=== PATIENT | male | born 1955 | race Caucasian/White ===

== ENCOUNTER 2023-03-17 05:56 | Day surgery (SDC) | payer MEDICARE, BC, SELFPAY ==
[2023-03-17] MEDS: LACTATED RINGERS 1000 ML 1,000 ML 100 ML IV ×2 (06:10→07:35)
[2023-03-17 06:18] VITALS: BP 136/90; PULSE 70; RESP 16; TEMP 36.9; O2SAT 97; BMI 29.7
[2023-03-17] MEDS: SODIUM CHLORIDE 0.9 % (FLUSH) 10 ML SYRINGE IVF (06:29)
--- NOTE | 2023-03-17 07:00 | CRLHL7_ITS ---
For Patients: As a result of the Century Cures Act, medical imaging exams and procedure reports are released immediately into your electronic medical record. You may view this report before your referring provider. If you have questions, please contact your health care provider. INDICATION: Hammertoe correction. TECHNIQUE: Fluoroscopically guided intraoperative evaluation of the left 2nd toe. Two spot images were obtained. FINDINGS: 23.6 seconds fluoroscopy time utilized intraoperatively. Postsurgical change from left 2nd toe hammertoe correction. A single metallic wire traverses the 2nd MTP joint. IMPRESSION: Postsurgical changes as described. 23.6 seconds fluoroscopy time utilized. Dictated by Tico Marino MD @ 03/17/2023 8:47:28 AM (Electronically Signed)
--- NOTE | 2023-03-17 07:17 | W.ANESCHARGE ---
Anesthesia Charges Start Date/Time Anesthesia Start Date: 03/17/23 Anesthesia Start Time: 07:13 Stop Date/Time Anesthesia Stop Date: 03/17/23 Anesthesia Stop Time: 08:50
[2023-03-17] MEDS: BUPIVACAINE 0.5% 30 ML INJECTION (07:24)
[2023-03-17] MEDS: CEFAZOLIN 2 GM INJ IVP (07:25)
[2023-03-17 08:48] VITALS: BP 122/78; PULSE 64; RESP 16; TEMP 36.6; O2SAT 98
--- NOTE | 2023-03-17 08:59 | P.PCN_ITS ---
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 Partial 2nd metatarsal head resection left 2. Hammertoe repair by PIPJ fusion 2nd toe left Procedure Description: Indication for surgery: Patient seen in clinic for ongoing painful 2nd MPJ and 2nd toe left foot. He has elected to have proceed with surgical correction. Reviewed the procedure, recovery, expectations and potential complications. These include but are not limited to: Poor wound healing, infection, under correction, over correction, continued pain, flail toe, floating toe, potential need for future surgery, deep venous thrombosis, pulmonary embolism and possible . All questions answered written consent was obtained. Site marked. Procedure: Patient's from the operating room placed supine position on operating table. IV sedation was initiated local anesthetic injected into the left foot. His prepped and draped in a sterile fashion. Standard time-out protocol was followed. Left foot was exsanguinated and the ankle tourniquet inflated to 250 mm Hg. A linear incision was made over the 2nd metatarsophalangeal joint and 2nd metatarsal head. The incision was carried down through skin subcutaneous tissues. Transverse incision was made through the extensor tendon and joint capsule. The base of the proximal phalanx head dislocated completely was resting on the dorsal aspect of the metatarsal head. McGlamry elevator was placed into the joint we were able to elevate the metatarsal head into view. Using a sagittal saw the distal 1/3 the metatarsal head was resected. C-arm confirmed excellent level and appearance of the bone cut. Transverse semi elliptical incision was then made at the level of the PIPJ 2nd toe. Skin wedge was excised. Transverse incision was made through the extensor tendon and the mediolateral collateral ligaments were released. Head of the proximal phalanx was resected. Base of the middle phalanx was resected. 0.062 K-wire was introduced into the base of the middle phalanx and driven out t hrough the tip of the toe. Fusion site was held in alignment and the pin was driven retrogradely into the proximal phalanx exiting the base of the phalanx. We aligned the pin on the metatarsal bone cut in the appropriate anatomic alignment then advanced the K-wire into the metatarsal. Position was confirmed clinically as well as with C-arm and found to be optimal. K-wire was then bent cut and capped. Wound was thoroughly irrigated normal sterile saline. The hypertrophied joint capsule was debrided repaired at the MPJ with 4-0 Vicryl. Excess extensor tendon was remodeled and repaired at the PIPJ with 4-0 Vicryl. Subcutaneous tissues reapproximated 4-0 Monocryl. Skin closed with 4-0 Prolene. Sterile dressing was then applied. Tourniquet was released and capillary fill time returned to normal in the 2nd toe. He is transferred from OR to PACU vital signs stable and vascular status intact. The discharged per Anesthesia. Both written and verbal postop instructions given. He is given oxycodone for pain. He will follow up in clinic in 2 days time. He is weight-bearing as tolerated to the heel with crutch assistance. Anesthesia: MAC and local Surgeon: German Jeffries DPM Estimated blood loss (mL): 2 Condition: stable Disposition: same day
[2023-03-17 09:00] VITALS: BP 114/77; PULSE 57; RESP 16; O2SAT 100
--- NOTE | 2023-03-17 09:04 | W.ANESCHARGE ---
Anesthesia Charges Start Date/Time Anesthesia Start Date: 03/17/23 Anesthesia Start Time: 07:13 Stop Date/Time Anesthesia Stop Date: 03/17/23 Anesthesia Stop Time: 08:50
[2023-03-17 09:15] VITALS: BP 141/99; PULSE 56; RESP 16; O2SAT 99
[2023-03-17 09:30] VITALS: BP 135/78; PULSE 58; RESP 16; O2SAT 99
== END 2023-03-17 09:56 | disposition home or self-care (01) ==
LOC: OR 06:03
PROVIDERS: Visit Provider Podiatrist
PROC: (CPT 28285; principal; 2023-03-17 07:15)
DX: M20.42 Other hammer toe(s) (acquired), left foot (principal); M25.872 Other specified joint disorders, left ankle and foot
CPT/HCPCS: 28112; 28285; 1480; 73620; 76000; J0665; J0690; J1100; J2250; J2405; J2704; J3010; J3490; J7120